=== PATIENT | male | born 1990 | race Caucasian/White ===

== ENCOUNTER 2017-01-23 23:56 | Inpatient (IN) | payer SELFPAY ==
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
--- NOTE | ~2017-01-23 | PA ---
Unit #: [id number] #: [id number] Patient: ESME RANGEL [id number] [facility] [address] [place] [address] [id number] MR#: [id number] NAME: ESME RANGEL ROOM: P266 Age: 26 Sex: M Admission Date: 01/23/2017 : 1990 Date of Assessment: 01/24/2017 Attending Physician: Martinez Eduardo M.D. Admitting Physician: Martinez Eduardo M.D. Primary Care Physician: Primary Care Physician No PSYCHIATRIC ASSESSMENT IDENTIFYING INFORMATION The patient is a 26-year-old single white male admitted in transfer from [place] where he had presented voicing positive suicidal ideation with plan to hang himself. INFORMANT(S) Patient. RELIABILITY Good. CHIEF COMPLAINT Tried to kill myself. HISTORY OF PRESENT ILLNESS The patient is a 26-year-old white male admitted after he had presented to [facility] reporting positive suicidal ideation. Earlier in the day, the patient had attempted to hang himself using a belt. The patient reports work stress and recent move from [place], [place] to [place] as causes of his stress. The patient reports a history of previous suicidal ideation and activity in 2014 when living with his father in [place]. The patient attempted suicide at that time and was briefly psychiatrically hospitalized. He reports a history of positive response to fluoxetine which was initiated there. Patient continues to endorse positive suicidal ideation. He denies homicidal ideation when seen today. He complains of some recent poor sleep and increased anxiety. He reports occasional use of cannabis but denies history of other psychoactive substances. 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 He lives with 3 roommates whom he has "just met." PAST PSYCHIATRIC HISTORY As above. FAMILY HISTORY The patient denies family history of psychiatric illness. SOCIAL HISTORY The patient lives with 3 roommates. He is a high school graduate. He reports cannabis use as noted previously. He has never and has no children and is not a smoker. MEDICAL HISTORY Unit #: [id number] #: [id number] Patient: ESME RANGEL Noncontributory. MEDICATION HISTORY None. ALLERGIES None. MENTAL STATUS EXAM At this time reveals the patient to be a well-developed, well-nourished white male appearing stated age. He is in no apparent physical distress at time of examination. He is awake, alert, oriented in all spheres. His mood is mildly dysphoric. His affect constricted. Speech is generally relevant and coherent. There are no gross deficits in memory or cognition noted. Intelligence is judged to be in the average range based on fund of knowledge. The patient is cooperative throughout the interview. He is currently reporting no suicidal/homicidal ideation or psychotic features. He is currently reporting positive suicidal ideation. He denies homicidal ideation. He denies any psychotic symptoms. His judgement and insight appear to be intact. ASSETS AND LIABILITIES Patient's assets, motivation for change. Liabilities, lack of resources. ADMITTING DIAGNOSES 1. Major depressive disorder, recurrent, moderate. 2. Cannabis use disorder. PSYCHIATRIC PLAN/TREATMENT GOALS The patient remains hospitalized for safety and stabilization. We will restart fluoxetine 20 mg daily to address depressive symptoms and will add p.r.n. trazodone and Vistaril for insomnia and anxiety respectively. The patient will participate in appropriate peres and milieu activities. DISCHARGE PLANNING Followup will take place through the auspices of community mental health resources in the [facility] area. ESTIMATED LENGTH OF STAY Three to five days. Dictated by... Martinez Eduardo M.D. DOT/mj TD: 01/24/2017 13:01 JOB #: [id number] Unit #: [id number] #: [id number] Patient: ESME RANGEL PSYCHIATRIC ASSESSMENT Page 1 of 1 X Martinez Eduardo MD X PSYCHIATRIC ASSESSMENT
--- NOTE | ~2017-01-23 | DS ---
Unit #: [id number] #: [id number] Patient: ESME RANGEL [id number] [facility] [address] [place] [address] [id number] MR#: [id number] NAME: ESME RANGEL ROOM: [facility] Age: 26 Sex: M Admission Date: 01/23/2017 : 1990 Discharge Date: 01/25/2017 Attending Physician: Martinez Eduardo M.D. Primary Care Physician: Primary Care Physician No DISCHARGE SUMMARY REASON FOR ADMISSION The patient is a 26-year-old white male, admitted in transfer from [facility], where he had presented voicing suicidal ideation. HOSPITAL COURSE The patient was admitted to the [facility] unit and placed on suicide precautions. He was restarted on Prozac 20 mg daily a medication to which he reported history of positive response and p.r.n. Vistaril and trazodone were added. The patient was pleasant and cooperative and was denying suicidal ideation when seen by this physician on 01/24/2017. On 01/25/2017, he again denied suicidal ideation and requested discharge, it was so ordered. FINAL DIAGNOSIS Major depressive disorder, recurrent, moderate. DISPOSITION ON DISCHARGE The patient discharged on the following medications; Prozac 20 mg daily for depression, trazodone 50 mg at h.s. p.r.n. insomnia, Vistaril 50 mg q.6 hours p.r.n. anxiety. DISCHARGE INSTRUCTIONS No dietary or physical restrictions were placed upon the patient at the time of discharge. FOLLOWUP Followup will take place through the auspices of community mental health resources in [facility]. PROGNOSIS The patient's prognosis is considered fair. Dictated by... Martinez Eduardo M.D. CB/maria c TD: 01/25/2017 23:21 JOB #: [id number] Unit #: [id number] #: [id number] Patient: ESME RANGEL DISCHARGE SUMMARY Page 1 of 1 X Martinez Eduardo MD X DISCHARGE SUMMARY
--- NOTE | ~2017-01-23 | HP ---
Unit #: [id number] #: [id number] Patient: TAMIKA RANGEL [id number] [place] [address] [id number] MR#: [id number] NAME: TAMIKA RANGEL ROOM: P266 Age: 26 Sex: M Admission Date: 01/23/2017 : 1990 Attending Physician: Martinez Eduardo M.D. Admitting Physician: Martinez Eduardo M.D. Primary Care Physician: Primary Care Physician No HISTORY AND PHYSICAL HISTORY OF PRESENT ILLNESS Tamika is a [age] year old admitted to [address] [place] [address] with depression and verbalizing wanting to hurt himself. PAST MEDICAL HISTORY Nothing significant. PAST SURGICAL HISTORY Nothing reported. ALLERGIES No known drug allergies. SOCIAL HISTORY He does not smoke, drinks alcohol on occasion and denies illicit drug use. FAMILY HISTORY Medically noncontributory. REVIEW OF SYSTEMS CONSTITUTIONAL: No fever or chills. HEENT: Denies any sore throat, ear pain or runny nose. CARDIOVASCULAR: Denies chest pain, irregular heart rhythm or palpitations. CHEST: Denies shortness of breath or cough. No hemoptysis. GASTROINTESTINAL: Denies nausea, vomiting, diarrhea or chronic constipation. ENDOCRINE: Denies history of increased thirst or urination. No recent significant weight loss or gain. GENITOURINARY: Denies dysuria, frequency, or hematuria. SKIN: Denies any rashes. HEMATOLOGIC: Denies history of increased bleeding or bruising. MUSCULOSKELETAL: Denies any hot, swollen joints. No generalized muscle pain. NEUROLOGIC: Denies problems with vision or speech. No frequent, severe headaches. No numbness, tingling or weakness in any extremities. Denies loss of bladder or bowel control. CURRENT MEDICATIONS 1. Desyrel 50 mg q.h.s. p.r.n. 2. Vistaril p.r.n. 3. Prozac 20 mg daily Unit #: [id number] #: [id number] Patient: TAMIKA RANGEL 4. Motrin p.r.n. 5. Milk of Magnesia p.r.n. 6. Maalox p.r.n. PHYSICAL EXAMINATION GENERAL: Alert, well-nourished, in no apparent distress. VITAL SIGNS: Blood pressure 114/82, heart rate 80, respirations 16, temperature 98.6. WEIGHT: 230 pounds. HEIGHT: 5'11". SKIN: Warm and dry without rash or lesion. HEENT: Normocephalic. TMs not viewed. Oral and nasal passages clear. Conjunctivae clear. Pupils equal, round and reactive to light and accommodation. Extraocular movements intact. NECK: Supple without lymphadenopathy or thyromegaly. HEART: Regular rate and rhythm without murmur. LUNGS: Clear. ABDOMEN: Soft, nontender. : Not done. EXTREMITIES: No evidence of cyanosis, clubbing or edema. Moves all extremities without focal deficit. NEUROLOGICAL: Grossly within normal limits. Cranial Nerves: II: Visual graf are intact. III, IV AND : Extraocular movements are intact. Pupils are equal, round and reactive to light. V: Facial sensation is grossly normal. VII: Facial movements and expression are normal. VIII: Auditory acuity grossly intact. IX, X: Uvula is midline. Phonation is normal. XI: Patient shrugs shoulders and turns head normally. XII: Tongue protrudes in the midline. Sensory and Motor Function: Sensory and motor sensation is grossly normal. Motor: moves all extremities well. Coordination: Gait is normal. Deep Tendon Reflexes: Intact. IMPRESSION Psychiatric admission RECOMMENDATIONS PSYCHIATRIC: Per psychiatrist. MEDICAL: I see no contraindications to participating in facility's activities. MEDICAL PROGNOSIS Good. MEDICAL CONDITION Stable. Dictated by... Isela Parsons P.A.-C. for [employer]/edi TD: 01/24/2017 22:05 Unit #: [id number] #: [id number] Patient: TAMIKA RANGEL JOB #: [id number] HISTORY AND PHYSICAL Page 1 of 1 X Isela Parsons HISTORY AND PHYSICAL
[2017-01-24 09:48] LABS: URINE APPEARANCE TURBID; URINE BLOOD NEG (NEG); URINE COLOR DK YELLOW; URINE GLUCOSE NEG (NEG); URINE KETONE 2+ (NEG); URINE LEUKOCYTE ESTERASE NEG (NEG); URINE NITRATE NEG (NEG); URINE PROTEIN NEG (NEG); URINE SPECIFIC GRAVITY 1.032 (1.003-1.035)
[2017-01-24 09:54] LABS: URINE BILIRUBIN NEG (NEG)
[2017-01-24 09:55] LABS: CULTURE INDICATED? NO
[2017-01-24 10:26] LABS: AMPHETAMINE NEG (NEG); BARBITURATES NEG (NEG); BENZODIAZEPINES NEG (NEG); COCAINE NEG (NEG); MARIJUANA NEG (NEG); OPIATES NEG (NEG); TRICYCLIC ANTIDEPRESSANTS NEG (NEG); U METHADONE NEG (NEG)
== END 2017-01-25 16:20 | disposition home or self-care (01) | DRG 885 ==
LOC: P2L 23:56
PROVIDERS: Specialist
DX: F33.1 Major depressive disorder, recurrent, moderate (principal)
CPT/HCPCS: 80307; 81003